=== PATIENT | female | born 1930 | race African-American/Black ===

== ENCOUNTER 2021-08-05 12:22 | Inpatient (IN) | payer BC ==
[~2021-08-05] VITALS: Ht 162.6 cm; Wt 52.6 kg
[~2021-08-05 12:22] MED LIST: LISI40TA13 MT; PRAV10TA35 MT
[2021-08-05] MEDS ORDERED: SODIUM CHLORIDE 0.9% 1,000 ML IV ONE (13:15)
[2021-08-05 13:20] LABS: HEMATOCRIT. 40.5 % (36.0-48.0); HEMOGLOBIN. 13.9 g/dL (12.0-16.0); MEAN CORPUSCULAR VOLUME 84.4 fL (81.0-99.0); MEAN PLATELET VOLUME 7.2 fl (7.4-10.4); PLATELET 298 x1000/uL (130-400); RED CELL DISTRIBUTION WIDTH 15.2 % (11.6-14.6)
[2021-08-05] MEDS ORDERED: MORPHINE SULFATE 2 MG/ML CPJ (NOT FOR IM USE) IV ONE (13:30)
[2021-08-05 13:32] LABS: PARTIAL THROMBOPLASTIN TIME 26.4 sec (23.4-31.0); PROTHROMBIN TIME 10.8 sec (9.6-11.0)
[2021-08-05 13:33] LABS: CHLORIDE 100 mEq/L (98-107)
[2021-08-05 13:37] LABS: PLATELET ESTIMATE NORMAL
[2021-08-05] MEDS ORDERED: ASPIRIN 325MG EC TABLET PO ONE (15:00)
[2021-08-05 15:25] LABS: CLARITY URINE CLOUDY (CLEAR); COLOR URINE YELLOW (YELLOW); KETONES URINE TRACE (NEGATIVE); LEUKOCYTE ESTERASE URINE 2+ (NEGATIVE); NITRITE URINE NEGATIVE (NEGATIVE); OCCULT BLOOD URINE 2+ (NEGATIVE); PROTEIN URINE 1+ (NEGATIVE); SPECIFIC GRAVITY URINE 1.027 (1.005-1.030)
[2021-08-05] MEDS ORDERED: CEFTRIAXONE 1 G PREMIX 50 ML IV ONE (15:30)
[2021-08-05] MEDS ORDERED: ZOLPIDEM TARTRATE 5MG TABLET PO PRN (15:45)
[2021-08-05] MEDS ORDERED: NITROGLYCERIN 0.4MG TABLET SL SL PRN (15:45)
[2021-08-05] MEDS ORDERED: ACETAMINOPHEN 325MG TABLET PO PRN ×2 (15:45)
[2021-08-05] MEDS ORDERED: MAGNESIUM/ALUMINUM HYDROXIDE/SIMETHICONE 30ML UDC PO PRN (15:45)
[2021-08-05] MEDS ORDERED: GUAIFENESIN 200MG/10ML SUGAR FREE UDC PO PRN (15:45)
[2021-08-05] MEDS ORDERED: ONDANSETRON HCL 4MG/2ML INJ IV PRN (15:45)
[2021-08-05] MEDS ORDERED: DOCUSATE SODIUM 100MG CAPSULE PO PRN (15:45)
[2021-08-05] MEDS ORDERED: IPRATROPIUM/ALBUTEROL 0.5-3(2.5)MG/3ML NEB NEB PRN (15:45)
[2021-08-05] MEDS ORDERED: NA PHOS,M-B/NA PHOS,DI-BA ENEMA 118ML PR PRN (15:45)
[2021-08-05] MEDS ORDERED: LEVOFLOXACIN 500MG PREMIX 100 ML IV NR (16:00)
[2021-08-05 16:20] LABS: TOTAL IRON BINDING CAPACITY 210 ug/dL (250-450)
[2021-08-05] MEDS: ENOXAPARIN 30MG/0.3ML SYR SUBCUT SCH (17:14)
[2021-08-05] MEDS: FAMOTIDINE 20MG TABLET PO SCH (22:06)
[2021-08-05] MEDS: ASCORBIC ACID 500 MG TABLET PO SCH (22:07)
[2021-08-06] VITALS: BP 147/76
[2021-08-06 04:00] VITALS: BP 154/75
[2021-08-06 08:00] VITALS: BP 167/80
[2021-08-06 08:14] LABS: BASOPHILS % 0.6 % (0.0-2.0); EOSINOPHILS % 1.5 % (0.0-5.0); HEMATOCRIT. 38.6 % (36.0-48.0); HEMOGLOBIN. 13.1 g/dL (12.0-16.0); LYMPHOCYTES % 16.7 % (20.0-50.0); MEAN CORPUSCULAR HEMOGLOBIN 28.8 pg (28.0-32.0); MEAN CORPUSCULAR VOLUME 84.7 fL (81.0-99.0); MEAN PLATELET VOLUME 7.4 fl (7.4-10.4); MONOCYTES % 8.4 % (2.0-8.0); NEUTROPHILS % 72.8 % (40.0-76.0); PLATELET 264 x1000/uL (130-400); RED BLOOD CELL COUNT 4.56 mill/uL (4.2-5.4); RED CELL DISTRIBUTION WIDTH 15.2 % (11.6-14.6)
[2021-08-06 08:25] LABS: CHLORIDE 103 mEq/L (98-107)
[2021-08-06 08:33] LABS: PHOSPHORUS 3.1 mg/dL (2.5-4.9)
[2021-08-06 08:34] LABS: CREATINE KINASE 26 IU/L (26-192); LDL CHOLESTEROL 87 mg/dL (5-100)
[2021-08-06 08:35] LABS: CREATINE KINASE 27 IU/L (26-192)
[2021-08-06 08:36] LABS: CREATINE KINASE MB FRACTION < 1.0 ng/mL (0.5-3.6); HDL CHOLESTEROL 64 mg/dL (40-59)
[2021-08-06] MEDS: ASCORBIC ACID 500 MG TABLET PO SCH ×2 (09:00→20:36)
[2021-08-06] MEDS: ASPIRIN 325MG EC TABLET PO SCH (09:54)
[2021-08-06] MEDS: ZINC SULFATE 220 MG ( 50 ) CAPSULE PO SCH (09:54)
[2021-08-06] MEDS: CLONIDINE 0.1MG TABLET PO PRN (09:55)
[2021-08-06] MEDS: CHOLECALCIFEROL (D3) 1000 UNIT TABLET PO SCH (09:55)
[2021-08-06 12:00] VITALS: BP 97/58
[2021-08-06 16:00] VITALS: BP 121/70
[2021-08-06] MEDS ORDERED: LEVOFLOXACIN 250MG PREMIX 50 ML IV SCH (16:00)
[2021-08-06] MEDS: ENOXAPARIN 30MG/0.3ML SYR SUBCUT SCH (16:09)
[2021-08-06 20:00] VITALS: BP 115/53
[2021-08-06] MEDS: FAMOTIDINE 20MG TABLET PO SCH (20:36)
[2021-08-07] VITALS: BP 151/69
[2021-08-07 04:00] VITALS: BP 176/85
[2021-08-07] MEDS: CLONIDINE 0.1MG TABLET PO PRN ×2 (05:14→12:50)
[2021-08-07 08:00] VITALS: BP 129/67
[2021-08-07] MEDS: ASCORBIC ACID 500 MG TABLET PO SCH ×2 (09:28→20:13)
[2021-08-07] MEDS: ZINC SULFATE 220 MG ( 50 ) CAPSULE PO SCH (09:28)
[2021-08-07] MEDS: ASPIRIN 325MG EC TABLET PO SCH (09:28)
[2021-08-07] MEDS: CHOLECALCIFEROL (D3) 1000 UNIT TABLET PO SCH (09:28)
[2021-08-07 12:00] VITALS: BP 145/68
[2021-08-07] MEDS: AMLODIPINE 10MG TABLET PO SCH (13:57)
[2021-08-07 16:00] VITALS: BP 115/62
[2021-08-07] MEDS: ENOXAPARIN 30MG/0.3ML SYR SUBCUT SCH (16:34)
[2021-08-07] MEDS: LEVOFLOXACIN 250MG TABLET PO SCH (16:34)
[2021-08-07] MEDS ORDERED: PRAV10TA35 MT (18:30)
[2021-08-07 20:00] VITALS: BP 115/60
[2021-08-07] MEDS: FAMOTIDINE 20MG TABLET PO SCH (20:13)
[2021-08-08] VITALS: BP 121/67
[2021-08-08 04:00] VITALS: BP 127/62
[2021-08-08 08:00] VITALS: BP 105/59
[2021-08-08] MEDS: CHOLECALCIFEROL (D3) 1000 UNIT TABLET PO SCH (09:09)
[2021-08-08] MEDS: ASPIRIN 325MG EC TABLET PO SCH (09:10)
[2021-08-08] MEDS: AMLODIPINE 10MG TABLET PO SCH (09:10)
[2021-08-08] MEDS: ZINC SULFATE 220 MG ( 50 ) CAPSULE PO SCH (09:10)
[2021-08-08] MEDS: ASCORBIC ACID 500 MG TABLET PO SCH ×2 (09:41→21:10)
[2021-08-08] MEDS: LISINOPRIL 20MG TABLET PO SCH ×2 (09:42→21:11)
[2021-08-08 12:00] VITALS: BP 125/63
[2021-08-08 16:00] VITALS: BP 123/59
[2021-08-08] MEDS: ENOXAPARIN 30MG/0.3ML SYR SUBCUT SCH (16:08)
[2021-08-08] MEDS: LEVOFLOXACIN 250MG TABLET PO SCH (16:08)
[2021-08-08 20:00] VITALS: BP 101/70
[2021-08-08] MEDS ORDERED: ATORVASTATIN CALCIUM 10MG TABLET PO SCH (21:00)
[2021-08-08] MEDS: FAMOTIDINE 20MG TABLET PO SCH (21:11)
[2021-08-09] VITALS: BP 113/68
[2021-08-09 04:00] VITALS: BP 91/66
[2021-08-09 08:00] VITALS: BP 128/69
[2021-08-09] MEDS: LISINOPRIL 20MG TABLET PO SCH (09:31)
[2021-08-09] MEDS: ASCORBIC ACID 500 MG TABLET PO SCH (09:31)
[2021-08-09] MEDS: AMLODIPINE 10MG TABLET PO SCH (09:31)
[2021-08-09] MEDS: ZINC SULFATE 220 MG ( 50 ) CAPSULE PO SCH (09:32)
[2021-08-09] MEDS: CHOLECALCIFEROL (D3) 1000 UNIT TABLET PO SCH (09:32)
[2021-08-09] MEDS: ASPIRIN 325MG EC TABLET PO SCH (09:32)
[2021-08-09 12:00] VITALS: BP 132/72
[2021-08-09 13:59] VITALS: BP 134/72
== END 2021-08-09 15:34 | disposition home or self-care (01) | DRG 871 ==
LOC: ER 12:32 → 7EST 15:01 → EDBEDREQTM 15:03 → EDBEDREQ 15:03 → SUPCPDRO 15:33 → ENRESERV 21:53
PROVIDERS: ADMIT Internal Medicine; ATTEND Internal Medicine
DX: A41.9 Sepsis, unspecified organism (principal); G92.8 Other toxic encephalopathy; N39.0 Urinary tract infection, site not specified; E44.1 Mild protein-calorie malnutrition; E87.1 Hypo-osmolality and hyponatremia; Z68.1 Body mass index [BMI] 19.9 or less, adult; E78.00 Pure hypercholesterolemia, unspecified; G89.29 Other chronic pain; I10 Essential (primary) hypertension; Z20.822 Contact with and (suspected) exposure to COVID-19; B96.20 Unspecified Escherichia coli [E. coli] as the cause of diseases classified elsewhere
CPT/HCPCS: 36415; 70551; 71045; 73502; 73552; 80053; 80061; 81003; 82550; 82553; 82607; 82728; 82746; 83036; 83540; 83550; 83605; 83735; 83880; 84100; 84145; 84484; 85025; 85379; 87077; 87186; 87426; 93005; 93306; 93970; 97161; 97166; 97530; 97535; 99285; J0696; J1650; J1956; J2270; J7030